=== PATIENT | female | born 1975 | race Two or more races ===

== ENCOUNTER 2018-01-03 16:39 | Emergency (ER) | payer MEDICAID, OTHER ==
[~2018-01-03] VITALS: Ht 160 cm; Wt 93.3 kg
[2018-01-03 16:43] VITALS: BP 129/86
[2018-01-03] MEDS ORDERED: HYDROcodone/APAP 5/325 TABLET PO STA (16:55)
[2018-01-03] MEDS ORDERED: ONDANSETRON ODT 4 MG PO ONE (17:00)
[2018-01-03] MEDS ORDERED: HYDROcodone/APAP 5/325 TABLET ONE (17:00)
[2018-01-03] MEDS ORDERED: ONDANSETRON ODT 4 MG ONE (17:00)
== END 2018-01-03 17:41 | disposition home or self-care (01) ==
LOC: ED 17:35
DX: H60.501 Unspecified acute noninfective otitis externa, right ear (principal); Z88.0 Allergy status to penicillin
CPT/HCPCS: 99283; Q0162

== ENCOUNTER 2018-08-25 14:05 | Emergency (ER) | payer MEDICAID ==
[~2018-08-25] VITALS: Ht 160 cm; Wt 96.5 kg
[2018-08-25 14:42] LABS: BASOPHILS # (AUTO) 0.02 x10^3/uL (0-0.1); BASOPHILS % (AUTO) 0 % (0-1); EOSINOPHILS # (AUTO) 0.18 x10^3/uL (0-0.4); EOSINOPHILS % (AUTO) 2 % (1-7); LYMPHOCYTES # (AUTO) 2.05 x10^3/uL (1-3.4); LYMPHOCYTES % (AUTO) 24 % (22-44); MD NO; MEAN CORPUSCULAR HEMOGLOBIN 28.4 pg (27.0-34.8); MEAN CORPUSCULAR HGB CONC 33.3 g/dL (32.4-35.8); MEAN CORPUSCULAR VOLUME 85.3 fL (80-100); MONOCYTES # (AUTO) 0.34 x10^3/uL (0.2-0.8); MONOCYTES % (AUTO) 4 % (2-9); NEUTROPHILS # (AUTO) 5.86 x10^3/uL (1.8-6.8); NEUTROPHILS % (AUTO) 69 % (42-75); PLATELET COUNT 186 x10^3/uL (130-400); RED BLOOD COUNT 4.91 x10^6/uL (3.82-5.3); RED CELL DISTRIBUTION WIDTH 13.8 % (9.6-15.2)
[2018-08-25 14:45] LABS: ALANINE AMINOTRANSFERASE 65 U/L (12-78); ALBUMIN 3.5 g/dL (3.4-5.0); ANION GAP 6 mmol/L (5-15); CALCIUM 8.7 mg/dL (8.5-10.1); CHLORIDE 107 mmol/L (98-107); CREATININE 0.63 mg/dL (0.55-1.02)
--- NOTE | 2018-08-25 14:56 | NUR ---
PT IN US FROM LOBBY
[2018-08-25 15:03] LABS: ALKALINE PHOSPHATASE 67 U/L (45-117); BILIRUBIN,TOTAL 0.3 mg/dL (0.2-1.0); TOTAL PROTEIN 7.8 g/dL (6.4-8.2)
[2018-08-25] MEDS ORDERED: ONDANSETRON ODT 4 MG ONE (15:30)
[2018-08-25] MEDS ORDERED: ONDANSETRON ODT 4 MG PO ONE (15:30)
[2018-08-25 15:47] LABS: MICROSCOPIC NOT IND
[2018-08-25 15:54] LABS: CULTURE INDICATED? NO
[2018-08-25 16:54] VITALS: BP 125/62
--- NOTE | 2018-08-25 17:10 | NUR ---
DC EDUCATION PROVIDED, PT DEMONSTRATES UNDERSTANDING. PT AMBULATED STEADILY TO DC WITH RN AND FAMILY
== END 2018-08-25 17:11 | disposition home or self-care (01) ==
LOC: ED 17:00
DX: O26.891 Other specified pregnancy related conditions, first trimester (principal); Z3A.01 Less than 8 weeks gestation of pregnancy; R10.32 Left lower quadrant pain
CPT/HCPCS: 36415; 76801; 80053; 81003; 84702; 85025; 86901; 99284; Q0162

== ENCOUNTER 2018-08-27 14:17 | Emergency (ER) | payer MEDICAID ==
[~2018-08-27] VITALS: Ht 154.9 cm; Wt 86.5 kg
[2018-08-27 14:49] LABS: BASOPHILS # (AUTO) 0.04 x10^3/uL (0-0.1); BASOPHILS % (AUTO) 0 % (0-1); EOSINOPHILS # (AUTO) 0.24 x10^3/uL (0-0.4); EOSINOPHILS % (AUTO) 3 % (1-7); LYMPHOCYTES # (AUTO) 1.99 x10^3/uL (1-3.4); LYMPHOCYTES % (AUTO) 23 % (22-44); MD NO; MEAN CORPUSCULAR HEMOGLOBIN 28.9 pg (27.0-34.8); MEAN CORPUSCULAR HGB CONC 34.1 g/dL (32.4-35.8); MEAN CORPUSCULAR VOLUME 84.7 fL (80-100); MEAN PLATELET VOLUME 9.8 fL (7.4-10.4); MONOCYTES # (AUTO) 0.48 x10^3/uL (0.2-0.8); MONOCYTES % (AUTO) 6 % (2-9); NEUTROPHILS # (AUTO) 5.86 x10^3/uL (1.8-6.8); NEUTROPHILS % (AUTO) 68 % (42-75); PLATELET COUNT 186 x10^3/uL (130-400); RED BLOOD COUNT 4.91 x10^6/uL (3.82-5.3); RED CELL DISTRIBUTION WIDTH 13.7 % (9.6-15.2)
--- NOTE | 2018-08-27 14:51 | NUR ---
SBAR report received from [facility].
--- NOTE | 2018-08-27 15:52 | NUR ---
RIKKI BONNER, at bedside to discuss ED findings and POC.
[2018-08-27 16:36] VITALS: BP 128/81
--- NOTE | 2018-08-27 16:37 | NUR ---
Patient/Caregiver given discharge instructions and they have confirmed that they understand the instructions. Patient ambulatory with steady gait.
== END 2018-08-27 16:38 | disposition home or self-care (01) ==
LOC: ED 16:22
DX: O02.0 Blighted ovum and nonhydatidiform mole (principal)
CPT/HCPCS: 36415; 84702; 85025; 99283

== ENCOUNTER 2020-09-24 13:26 | Observation (INO) | payer OTHER, MEDICAID ==
[~2020-09-24] VITALS: Ht 160 cm; Wt 91.0 kg
[2020-09-24] MEDS ORDERED: TRANEXAMIC ACID 100 MG/ML, 10ML ONE (13:41)
--- NOTE | 2020-09-24 13:42 | NUR ---
RADHA PROVIDED TO DR ARROYO. CALL TO PHARMACY REQUESTING LIDO WITH EPI.
[2020-09-24] MEDS ORDERED: LIDOCAINE 1%-EPI 1:100K, 20ML INFIL ONE (14:00)
[2020-09-24] MEDS ORDERED: TRANEXAMIC ACID 100 MG/ML, 10ML TP ONE (14:00)
[2020-09-24 14:25] LABS: BASOPHILS % (AUTO) 1 % (0-1); EOSINOPHILS % (AUTO) 2 % (1-7); LYMPHOCYTES % (AUTO) 27 % (22-44); MEAN CORPUSCULAR HEMOGLOBIN 28.5 pg (27.0-34.8); MEAN CORPUSCULAR HGB CONC 33.7 g/dL (32.4-35.8); MEAN PLATELET VOLUME 9.8 fL (7.4-10.4); MONOCYTES % (AUTO) 6 % (2-9); NEUTROPHILS % (AUTO) 64 % (42-75); PLATELET COUNT 148 x10^3/uL (130-400); RED CELL DISTRIBUTION WIDTH 13.9 % (9.6-15.2)
[2020-09-24 14:27] LABS: MD NO
[2020-09-24] MEDS ORDERED: AMIT10TA PO (14:32)
[2020-09-24] MEDS ORDERED: SUMA50TA4 PO (14:32)
--- NOTE | 2020-09-24 14:32 | NUR ---
ASSUMED PT CARE. PT HERE D/T NOSE BLEED STARTED ON FRI.
[2020-09-24 14:37] LABS: ALANINE AMINOTRANSFERASE 61 U/L (12-78); ALBUMIN 3.3 g/dL (3.4-5.0); ANION GAP 4 mmol/L (5-15); CALCIUM 8.1 mg/dL (8.5-10.1); CHLORIDE 107 mmol/L (98-107); CREATININE 0.73 mg/dL (0.55-1.02)
[2020-09-24 14:38] LABS: INTERNATIONAL NORMALIZED RATIO 1.01 (0.93-1.1); PROTHROMBIN TIME 10.8 Seconds (9.6-11.5)
[2020-09-24 14:39] LABS: ALKALINE PHOSPHATASE 70 U/L (45-117); BILIRUBIN,TOTAL 0.3 mg/dL (0.2-1.0); TOTAL PROTEIN 7.1 g/dL (6.4-8.2)
[2020-09-24] MEDS ORDERED: SODIUM CHLORIDE FLUSH 10ML SYR IVF ONE (15:00)
[2020-09-24] MEDS ORDERED: SODIUM CHLORIDE 0.9% 1,000 ML IV ONE ×2 (15:00→16:00)
--- NOTE | 2020-09-24 15:16 | NUR ---
ENT IS BEDSIDE
[2020-09-24] MEDS ORDERED: OXYMETAZOLINE NASAL SPRAY 0.05%,30ML ONE (15:23)
[2020-09-24] MEDS ORDERED: MORPHINE SULFATE 4 MG/ML, 1ML ONE ×2 (15:53→16:41)
[2020-09-24] MEDS: MORPHINE SULFATE 4 MG/ML, 1ML IVPush PRN ×2 (15:57→16:45)
[2020-09-24] MEDS ORDERED: SODIUM CHLORIDE FLUSH 10ML SYR IVF PRN (16:00)
[2020-09-24] MEDS ORDERED: ONDANSETRON 2MG/ML, 2ML IVPush ONE (16:00)
[2020-09-24] MEDS ORDERED: ONDANSETRON 2MG/ML, 2ML ONE (16:15)
--- NOTE | 2020-09-24 16:27 | NUR ---
PT HAS BEEN MEDICATED, NS IVF STARTED PER MAR. PT PROVIDED PILLOW, HOB ELEVATED.
--- NOTE | 2020-09-24 17:07 | NUR ---
SBAR REPORT GIVEN TO GARY, UPDATED ON POC. PT AWAKE, ALERT. VSS. NADN.
[2020-09-24] MEDS ORDERED: LACTATED RINGERS 1,000 ML IV SCH (17:30)
[2020-09-24] MEDS ORDERED: ACETAMINOPHEN 325 MG TABLET PO PRN (17:30)
[2020-09-24 17:37] VITALS: BP 123/78
[2020-09-24] MEDS: CLINDAMYCIN PMX 600MG/50ML 50 ML IV SCH (18:02)
[2020-09-24] MEDS: OXYcodone/APAP 5/325MG TABLET PO PRN (18:08)
[2020-09-24 18:58] VITALS: BP 110/77
[2020-09-24] MEDS: morphine SULFATE 10 MG/ML, 1ML IVPush PRN (20:24)
[2020-09-25 00:30] VITALS: BP 121/77
[2020-09-25] MEDS: CLINDAMYCIN PMX 600MG/50ML 50 ML IV SCH ×2 (01:31→09:58)
[2020-09-25] MEDS: morphine SULFATE 10 MG/ML, 1ML IVPush PRN ×2 (02:05→10:07)
[2020-09-25 06:02] LABS: BASOPHILS % (AUTO) 0 % (0-1); EOSINOPHILS % (AUTO) 1 % (1-7); LYMPHOCYTES % (AUTO) 21 % (22-44); MEAN CORPUSCULAR HEMOGLOBIN 28.8 pg (27.0-34.8); MONOCYTES % (AUTO) 6 % (2-9); NEUTROPHILS % (AUTO) 72 % (42-75); PLATELET COUNT 132 x10^3/uL (130-400); RED BLOOD COUNT 3.18 x10^6/uL (3.82-5.3); RED CELL DISTRIBUTION WIDTH 14.1 % (9.6-15.2)
[2020-09-25 06:07] LABS: MD NO
[2020-09-25 07:16] VITALS: BP 114/70
[2020-09-25] MEDS ORDERED: OXYC1TAB14 PO (10:10)
[2020-09-25] MEDS ORDERED: CLIN300C9 PO (10:10)
[2020-09-25] MEDS: OXYcodone/APAP 5/325MG TABLET PO PRN (12:10)
[2020-09-25 14:01] VITALS: BP 118/74
== END 2020-09-25 14:45 | disposition home or self-care (01) ==
LOC: ED 16:05 → SUATTDRO 16:05 → INTOOBSV 17:13 → EDIP 17:13 → 3N 17:20 → DCLOUNGE 09-25 14:33
PROVIDERS: ADMIT Family Medicine; ATTEND Family Medicine
DX: R04.0 Epistaxis (principal); D62 Acute posthemorrhagic anemia; E86.0 Dehydration; R00.0 Tachycardia, unspecified; E66.9 Obesity, unspecified; T36.0X5A Adverse effect of penicillins, initial encounter; T88.6XXA Anaphylactic reaction due to adverse effect of correct drug or medicament properly administered, initial encounter; Z68.34 Body mass index [BMI] 34.0-34.9, adult; Z79.899 Other long term (current) drug therapy
CPT/HCPCS: 36415; 80053; 85025; 85610; 85730; 96361; 96365; 96366; 96375; 96376; 99291; G0378; J2270; J2405; J7030; J7120